=== PATIENT | male | born 1950 | race Caucasian/White ===

== ENCOUNTER 2016-11-23 07:57 | Emergency (ER) | payer MEDICARE, OTHER ==
[~2016-11-23] VITALS: Ht 175.3 cm; Wt 80.0 kg
[2016-11-23] MEDS ORDERED: SOD CHLORIDE 0.9% 1,000 ML IV STA (08:04)
[2016-11-23 08:08] VITALS: Ht 175.3 cm; Wt 80.0 kg
--- NOTE | 2016-11-23 08:08 | ERD ---
ER Documentation Chief Complaint Date/Time DATE: 11/23/16 TIME: 08:05 Chief Complaint HPI Patient is a 66-year-old male who presents with sudden onset of presyncope in the shower. He reported feeling dizzy and lowered himself to the ground. He felt generally weak and was not able to get up. He gets assistance and showering due to anoxic brain injury. 911 was called, and on EMS arrival, the patient appeared pale. He had normal vital signs. His parents improved en route to the ER. In the ER, the patient reports feeling slight shortness of breath. He denies chest pain, abdominal pain, headache, back pain. He denies dizziness. ROS All systems reviewed and are negative except as per history of present illness. 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 His membranes moist Neck: Full range of motion. No JVD Resp: Clear to auscultation bilaterally no wheezes, no rales Cardio: Regular rate and rhythm, no murmurs Abd: Soft, non tender, non distended. Skin: No petechiae or rashes Back: No midline or flank tenderness Ext: No cyanosis, or edema Neur: Awake and alert, cranial nerves II through XII intact bilaterally, moves 4 extremities appropriately. Psych: Normal Mood and Affect Result Diagram: 11/23/16 0820 11/23/16 0820 Results 24 hrs Laboratory Tests Test 11/23/16 08:20 11/23/16 10:24 White Blood Count 10.210^3/ul Red Blood Count 4.4510^6/ul Hemoglobin 14.4g/dl Hematocrit 42.9% Mean Corpuscular Volume 96.4fl Mean Corpuscular Hemoglobin 32.4pg Mean Corpuscular Hemoglobin Concent 33.6g/dl Red Cell Distribution Width 12.2% Platelet Count 23310^3/UL Mean Platelet Volume 10.3fl Neutrophils % 63.6% Lymphocytes % 23.7% Monocytes % 7.5% Eosinophils % 4.3% Basophils % 0.5% Nucleated Red Blood Cells % 0.0/100WBC Neutrophils # 6.510^3/ul Lymphocytes # 2.410^3/ul Monocytes # 0.810^3/ul Eosinophils # 0.410^3/ul Basophils # 0.110^3/ul Nucleated Red Blood Cells # 0.010^3/ul Sodium Level 139mmol/L Potassium Level 4.4mmol/L Chloride Level 103mmol/L Carbon Dioxide Level 27mmol/L Anion Gap 13 Blood Urea Nitrogen 22mg/dl Creatinine 1.22mg/dl Glucose Level 125mg/dl Calcium Level 9.3mg/dl Troponin I < 0.012ng/ml Urine Color YELLOW Urine Clarity CLEAR Urine pH 5.0 Urine Specific [place] 1.019 Urine Ketones NEGATIVEmg/dL Urine Nitrite NEGATIVEmg/dL Urine Bilirubin NEGATIVEmg/dL Urine Urobilinogen NEGATIVEmg/dL Urine Leukocyte Esterase NEGATIVELeu/ul Urine Microscopic RBC 1/HPF Urine Microscopic WBC 1/HPF Urine Mucus FEW/HPF Urine Hemoglobin 3+mg/dL Urine Glucose NEGATIVEmg/dL Urine Total Protein NEGATIVEmg/dl Current Medications Medications (Trade) Dose Ordered Sig/Jasmeet Route PRN Reason Start Time Stop Time Status Last Admin Dose Admin Sodium Chloride (NS) 1,000 ml @ 1,000 mls/hr Q1H STAT IV 11/23/16 08:04 11/23/16 09:03 DC 11/23/16 08:18 Procedures/MDM EKG read by me: Time 0810, rate 67 Rhythm: Normal sinus [place]: Rightward axis Intervals: Normal ST-T waves: no ischemic changes Ectopy: No Q-waves: No Impression: No evidence of ischemia or arrhythmia MDM: Patient is a 66-year-old male who presents with a near syncopal episode in the shower this morning. His caregiver reports that he goes through periods where he sleeps more and is currently been sleeping longer. When he woke this morning and stood up he felt slightly lightheaded. When he was in the shower, this became worse and he had to lower himself to the ground. There is no trauma. There is no loss consciousness. Patient's symptoms resolved by the time he arrived in the emergency department. The patient has normal vital signs , labs, and chest x-ray. He states that he feels well, and his caregiver reports that he is at baseline. He likely experienced near syncope related to distributional effects of standing up and being in a warm shower causing peripheral vasodilation and loss of central blood pressure. He is stable for discharge home. His EKG is unremarkable. I have advised him and his caregiver on return precautions. Departure Diagnosis: Primary Impression: Near syncope Condition: Stable BOO CRUZ MD Nov 23, 2016 08:07
[2016-11-23 08:41] LABS: ADD SCAN DIFF NO
[2016-11-23 08:45] LABS: BASOPHIL # 0.1 10^3/ul (0.0-0.1); BASOPHILS % 0.5 % (0.0-2.0); EOSINOPHILS # 0.4 10^3/ul (0.0-0.5); EOSINOPHILS % 4.3 % (0.0-7.0); HEMATOCRIT 42.9 % (42.0-52.0); HEMOGLOBIN 14.4 g/dl (14.0-18.0); LYMPHOCYTES # 2.4 10^3/ul (0.8-2.9); LYMPHOCYTES % 23.7 % (15.0-51.0); MEAN CORPUSCULAR HEMOGLOBIN 32.4 pg (29.0-33.0); MEAN CORPUSCULAR HGB CONC 33.6 g/dl (32.0-37.0); MEAN CORPUSCULAR VOLUME 96.4 fl (82.0-101.0); MEAN PLATELET VOLUME 10.3 fl (7.4-10.4); MONOCYTE # 0.8 10^3/ul (0.3-0.9); MONOCYTES % 7.5 % (0.0-11.0); NEUTROPHIL # 6.5 10^3/ul (1.6-7.5); NEUTROPHILS % 63.6 % (39.0-77.0); PLATELET COUNT 225 10^3/UL (140-415); RED BLOOD COUNT 4.45 10^6/ul (4.70-6.10); RED CELL DISTRIBUTION WIDTH 12.2 % (11.5-14.5); WHITE BLOOD COUNT 10.2 10^3/ul (4.8-10.8)
[2016-11-23 09:12] LABS: ANION GAP 13 (8-16); BLOOD UREA NITROGEN 22 mg/dl (7-20); CALCIUM 9.3 mg/dl (8.4-10.2); CARBON DIOXIDE 27 mmol/L (21-31); CHLORIDE 103 mmol/L (97-110); CREATININE 1.22 mg/dl (0.61-1.24); GLUCOSE 125 mg/dl (70-220); POTASSIUM 4.4 mmol/L (3.5-5.1); SODIUM 139 mmol/L (135-144)
[2016-11-23 09:35] LABS: TROPONIN-I < 0.012 ng/ml (0.00-0.12)
--- NOTE | 2016-11-23 10:13 | RADRPT ---
PROCEDURE: XR Chest. CLINICAL INDICATION: Syncope. TECHNIQUE: Chest x-ray, single view. COMPARISON: None. FINDINGS: The cardiac silhouette is slightly magnified. Haziness of the lower chest is present and may be a r esult of a prominent epicardial fat pad and attenuation from overlapping soft tissues. The lungs ar e otherwise clear. Skeletal structures and upper abdomen are unremarkable. Pulmonary vascularity i s within normal limits. IMPRESSION: Mild haziness of the left mid to lower chest likely a result of a prominent epicardial fat pad and a ttenuation from overlapping soft tissues. Follow-up may be obtained with dedicated two-view chest x- ray. RPTAT: PP .Monse Jean MD, Date Time Electronically viewed and signed by .Monse Jean MD, on 11/23/2016 10:12 .T/
[2016-11-23 10:45] LABS: ADD UMIC YES; UR ASCORBIC ACID 20 mg/dL (NEGATIVE); UR BILIRUBIN (Dip) NEGATIVE (NEGATIVE); UR BLOOD (Dip) 3+ mg/dL (NEGATIVE); UR CLARITY CLEAR (CLEAR); UR COLOR YELLOW (YELLOW); UR GLUCOSE (Dip) NEGATIVE (NEGATIVE); UR KETONES (Dip) NEGATIVE (NEGATIVE); UR LEUKOCYTE ESTERASE (Dip) NEGATIVE Leu/ul (NEGATIVE); UR MUCUS FEW /HPF (NONE SEEN); UR NITRITE (Dip) NEGATIVE (NEGATIVE); UR RBC 1 /HPF (0-5); UR SPECIFIC GRAVITY (Dip) 1.019 (1.003-1.030); UR TOTAL PROTEIN (Dip) NEGATIVE (NEGATIVE); UR UROBILINOGEN (Dip) NEGATIVE (NEGATIVE)
[2016-11-23 11:29] VITALS: BP 112/68; PULSE 60; RESP 20; TEMP 97.8
== END 2016-11-23 11:32 | disposition home or self-care (01) ==
LOC: E/R 07:57
DX: R55 Syncope and collapse (principal); I10 Essential (primary) hypertension; J44.9 Chronic obstructive pulmonary disease, unspecified
CPT/HCPCS: 36415; 71010; 80048; 81001; 84484; 85025; 93005; 99285; J7030